=== PATIENT | male | born 1930 | race Caucasian/White ===

== ENCOUNTER 2018-04-10 10:52 | Inpatient (IN) | payer OTHER ==
[~2018-04-10] VITALS: Ht 170.2 cm; Wt 104.5 kg
--- NOTE | ~2018-04-10 | HC ---
[facility] [place] [place] [address] CONSULTATION Name: EDMUNDO FITZGERALD Room #: 363-P ADM IN M.R.#: [id number] Admission: 04/10/18 Attend Phys: Andrew Odom MD Discharge: Date of : 31 Report #: [id number] THIS REPORT FOR: //name// CC: Leah Odom MD DATE OF SERVICE: 04/11/2018 REFERRING PHYSICIAN: Dr. Odom and also Dr. Leah Faustin. REASON FOR CONSULTATION: History of Waldenstrom's macroglobulinemia. HISTORY OF PRESENT ILLNESS: The patient is an 87-year-old gentleman who I first met on 03/25/2018, he has been referred for possible monoclonal gammopathy of unknown significance. He was found to have an elevated total protein and then a serum protein electrophoresis this past year. He had 3 abnormal protein bands measuring 0.6, 0.7 and 0.3 g/dL. The immunofixation studies show an IgM kappa and IgM lambda and possible poorly-defined IgG kappa paraprotein. The patient had a recent additional test that had included a repeat urine LOLIS that showed free monoclonal kappa, a urine protein electrophoresis that showed no significant protein elevation and SPEP protein of 1.88 total. LABORATORY DATA: A beta 2 microglobulin elevated at 3.2. A serum kappa light chain of 17.47 with upper range of 1.94, free lambda light chain of 4.73 with upper range of 2.63 and a ratio that was slightly above normal at 3.69. The IgM was slightly elevated at 1292 with upper normal of 328. The IgG was 2053, high normal is 1488 and IgA that was normal. The CBC showed a fairly normal hemoglobin, white count and platelet count. A recent skeletal survey showed diffuse osteopenia without discrete lytic changes. Recent bone marrow showed B cell lymphoma, 80% bone marrow cellularity involving hypercellular 80-90% with decreased trilineage hematopoiesis. These changes would be most consistent I think with Waldenstrom's macroglobulinemia. The patient is now admitted for weakness, was found to have sodium that was low and is being evaluated for hyponatremia. The patient had been experiencing some weakness for the past several weeks, though he denied any fevers, chills, abdominal pain, diarrhea, constipation, dysuria. He had had some mild shortness of air, may be some chronic mild leg swelling. PAST MEDICAL HISTORY: Notable for atrial fibrillation; coronary artery disease; history of heart failure, under control; diabetes mellitus; diabetic neuropathy; macular degeneration; essential hypertension; supraventricular tachycardia and bladder difficulties. 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 He lives in a longterm center and enjoys playing bridge. He likes to help run the bridge groups. He is not regular, but enjoys companionship. His from cancer about 7 years ago. He has a very attentive family. LAB TESTS MEDICATIONS: Here in the hospital include sodium on admit of 116 and then 119, now 124 last night or early this morning, being followed; BUN of 13, creatinine of 0.8, glucose of 149. Total bilirubin 1.8, alkaline phosphatase 211, ALT 84, AST 46, albumin 3.0. White count of 5.7, hemoglobin 11.7, platelets of 198. Differential has a slight increase in neutrophils and monocytes. UA does have some urobilinogen, some trace blood and trace protein. Imaging study done here includes a CT chest, abdomen and pelvis that is remarkable for not showing any lymphadenopathy, though it did show some question of interstitial edema and possible heart failure with cardiomegaly, coronary artery disease. Mild abdominal pelvic ascites, no evidence for abdominal or significant pelvic adenopathy. There is a small ventral pelvic hernia that is eccentric to the right, nonobstructing. CURRENT MEDICATIONS: Here in the hospital currently include nystatin 1 gram b.i.d. topically, tamsulosin 0.4 daily, fluticasone 2 sprays to nares daily, MiraLax 17 grams daily, Xanax 1 mg daily at bedtime, apixaban 5 mg b.i.d., carvedilol 25 mg b.i.d., currently IV fluids. PHYSICAL EXAMINATION GENERAL: The patient appears his stated age. VITAL SIGNS: Height is 5 feet 7 inches, 170 cm. Weight is possibly 263 pounds, though yesterday's report has 224, we will need to clarify, so his weight is either 101.6 kilos or 119 kilos. MOOD: The patient is alert and pleasant. He does not see much different than his usual self when I had seen him the one time before. HEENT: Face is symmetric. He is moving extremities. Speech and thought pattern appear to be normal. Oropharynx is clear. LUNGS: Mostly clear anteriorly without any rhonchi or wheezes. HEART: Appears regular rate. ABDOMEN: Obese. No organomegaly. EXTREMITIES: Without clubbing, cyanosis. There is some trace edema. ASSESSMENT AND PLAN: 1. Recently-diagnosed Waldenstrom's macroglobulinemia with an IgM of around 1200. I do not believe the patient is having symptoms from his recently diagnosed macroglobulinemia. Usually indications for treatment are unexplained fevers, chills, weight loss or cytopenias. I think most likely his other etiologies causes weakness and hyponatremia. We will follow along. 2. Hyponatremia, deferring to others, is improving with current measures. [facility] [address] [place] [address] CONSULTATION Name: EDMUNDO FITZGERALD Room #: 363-P [facility] IN ..#: [id number] Admission: 04/10/18 Attend Phys: Andrew Odom MD Discharge: Date of : 31 Report #: [id number] 3. History of coronary heart issues including AFib, coronary artery disease, heart failure, and hypertension. Continue the apixaban and carvedilol. 4. Diabetes mellitus. Continues Accu-Cheks and meds and interventions. 5. Weakness. We will most likely have Physical Therapy see the patient. We will follow with you. <ELECTRONICALLY SIGNED> By: Vijay Lyman MD 04/16/18 0825 0720 1317 Vijay Lyman MD /nt
--- NOTE | ~2018-04-10 | PATH ---
[facility] [address] [place] [address] PATHOLOGY RPT PROCEDURE Name: EDMUNDO FITZGERALD Room #: 363-P ADM IN .R.#: [id number] Admission: 04/10/18 Date of : 31 Discharge: Report #: [id number] Path Case #: [id number] Note [facility] Accession Number: [id number] TESTS RESULT FLAG UNITS REF RANGE LAB Clinician Provided Cytology Information No. of containers..01 Other (Miscellaneous) Source: PLEURAL FLUID DIAGNOSIS: 02 PLEURAL FLUID NEGATIVE FOR MALIGNANT CELLS. MESOTHELIAL CELLS ARE PRESENT. THIS INTERPRETATION INCLUDES EVALUATION OF A CELL BLOCK. MARKED ACUTE AND CHRONIC INFLAMMATORY INFILTRATE. Signed out by: Fany Amos MD, Pathologist NPI- [id number] Performed by: Elan Anderson, [employer] ([facility]) Gross description: 01 15 ML, YELLOW, CLEAR /LCS FLAG LEGEND: L-Low Normal,H-High Normal,LL-Alert Low,HH-Alert High <-Panic Low,>-Panic High,A-Abnormal,AA-Critical Abnormal Performed at: [address] [place] [address] Lawrence Burk MD, [address] [address] Fany Amos MD, Performed at: [address], [place], [place] [id number] MD Lawrence Burk MD Phone: [phone]
--- NOTE | ~2018-04-10 | HC ---
[facility] [place] [address] CONSULTATION Name: EDMUNOD FITZGERALD Dion Room #: 363-P [facility] IN M.R.#: [id number] Admission: 04/10/18 Attend Phys: Andrew Odom MD Discharge: Date of : 31 Report #: [id number] THIS REPORT FOR: //name// CC: Leah Odom DATE OF SERVICE: 04/11/2018 REASON FOR PRESENTATION: Weakness. HISTORY OF PRESENT ILLNESS: An 87-year-old who was recently diagnosed to have non-Hodgkin's per his daughter. Bone marrow biopsy was done. I do not have those records available. He is not known to have any issues with his kidneys or sodium in the past. When he presented to the emergency room, he was found to have a sodium of 116 mandating a nephrology consultation. He denies fever or chills. He tells me that he drinks excessive amount of water a day. He was not aware of his heart issues; however, further investigations after being admitted revealed that he has a significantly depressed and reduced ejection fraction. He does have lower extremity edema and all of his presentation is consistent with hypervolemic hyponatremia. PAST MEDICAL HISTORY: 1. Heart failure. 2. Hypertension. 3. Perforated colon post colon resections, colostomy and colostomy reversal. 4. Atrial fibrillation post ablation. 5. Diabetes mellitus. MEDICATIONS: 1. Spironolactone. 2. Metformin. 3. Eliquis. 4. Carvedilol. 5. Lisinopril. 6. Simvastatin. SOCIAL HISTORY: No drug or alcohol abuse. REVIEW OF SYSTEMS: GENERAL: No fever or chills. CARDIOVASCULAR: As per the history of present illness. PULMONARY: No cough or hemoptysis. GASTROINTESTINAL: No nausea or vomiting. GENITOURINARY: No frequency, no urgency. PHYSICAL EXAMINATION: [facility] [address] [place] [address] CONSULTATION Name: AMILCAREDMUNDO Dion Room #: 363-P [facility] IN [facility]#: [id number] Admission: 04/10/18 Attend Phys: Andrew Odom MD Discharge: Date of : 31 Report #: [id number] GENERAL: Alert, oriented, in no apparent distress. VITAL SIGNS: Temperature 37.1, blood pressure 133/73. HEAD AND NECK: No jugular venous distention, no bruit, no thyromegaly. CHEST: Decreased air entry bilaterally with crackles. CARDIOVASCULAR: Irregular, with no rub detected. ABDOMEN: Soft, nontender with no hepatosplenomegaly. LOWER EXTREMITIES: +3 edema. LABORATORY VALUES: Reviewed. Sodium is up to 124. Echo, results were reviewed. He has normal kidney function. TSH is within normal. ASSESSMENT, IMPRESSION AND PLAN: 1. Hypervolemic hyponatremia. 2. Systolic heart failure. 3. Pulmonary edema. 4. Discontinue normal saline. 5. Appropriate treatment of his heart failure therapy with the following beta saima. 6. MORELIA inhibitor. 7. Salt and fluid restrictions. 8. Daily body weight. 9. Initiate on a stable diuretic regimen. By: 1434 0047 Dulce Luis MD /nt
--- NOTE | ~2018-04-10 | EKG ---
[place] [address] [address] [facility] [address] [place] [address] ELECTROCARDIOGRAM REPORT Name: EDMUNDO FITZGERALD Room #: 363-P ADM IN M.R.#: [id number] Admission: 04/10/18 Attend Phys: Andrew Odom MD Discharge: Date of : 31 Report #: [id number] THIS REPORT FOR: //name// [facility] ED Test Date: 2018-04-10 Test Time: 11:26:21 Pat Name: EDMUNDO FITZGERALD Department: Room: Gender: M Assembly Inspector Helper: : 1930 Requested By: Carlos Orlando Order Number: [id number] MD: Shreyas Colin Measurements Intervals Cecil Rate: 74 P: ME: QRS: -52 QRSD: 123 T: 19 QT: 395 QTc: 439 Interpretive Statements Atrial fibrillation Left bundle branch block Compared to ECG 06/15/2008 08:39:42 Left bundle-branch block now present Sinus rhythm no longer present Electronically Signed On 04-10-2018 16:55:20 CDT by Shreyas Colin [email or web address] <ELECTRONICALLY SIGNED> By: Shreyas Colin MD, [facility] 04/10/18 6547 1126 1126 Shreyas Colin MD, [facility] /EPI
--- NOTE | ~2018-04-10 | HC ---
[facility] [place] [address] CONSULTATION Name: EDMUNDO FIZTGERALD Dion Room #: 363-P [facility] IN M.R.#: [id number] Admission: 04/10/18 Attend Phys: Andrew Odom MD Discharge: Date of : 31 Report #: [id number] THIS REPORT FOR: //name// CC: Leah Odom DATE OF SERVICE: 04/14/2018 HISTORY OF PRESENT ILLNESS: The patient is an 87-year-old white male with history of non-Hodgkin's lymphoma, diabetes mellitus type 2, hypertension, atrial fibrillation and was admitted with increased weakness. Noted to have difficulty walking. He was noted to have hyponatremia with question of SIADH. He also has been diagnosed with a significant decreased cardiac ejection fraction of 20%. He is noted to have heart failure and his fluid status is being monitored. Hematology is involved with his noted Waldenstrom's macroglobulinemia. We are seeing him in rehabilitation medicine consultation. He does have medical complexity with generalized debilitation. PAST MEDICAL HISTORY: Includes hypertension, perforated colon with colon resection in 2002, irregular heartbeat, non-insulin dependent diabetes mellitus. He has got an old left knee injury from football and he uses a knee orthosis. HABITS: No history of tobacco or alcohol abuse. ALLERGIES: INCLUDE PENICILLIN. SOCIAL HISTORY: Lives in a senior apartment alone Mike Adorno[address]. Used a walker to get around with his left knee brace. Daughters apparently considering getting him a powered scooter. REVIEW OF SYSTEMS: Complains of generalized fatigue. No current complaints of chest pain, shortness of breath, abdominal discomfort. He has the chronic left knee problems for which he wears the brace. PHYSICAL EXAMINATION: GENERAL: A pleasant 87-year-old white male in no obvious distress. He appears alert and pleasant. HEENT: Appeared to be benign. VITAL SIGNS: Last recorded temperature 97.3, pulse 88, respirations 21, and blood pressure 107/64. NEUROLOGIC: The patient is alert. He is pleasant. He follows basic commands without difficulty. Facies are symmetric. Functional range of motion of the upper extremity strength is grade 4-/5. DTRs are trace to 1. Lower extremities, no focal calf swelling, functional range of motion with strength grade 4-/5. DTRs are trace to 1. He is min assist with sit to stand. Gait 50 feet min assist with a front-wheeled walker utilizing the left AFO. [facility] [address] [place] [address] CONSULTATION Name: EDMUNDO FITZGERALD Room #: 363-P [facility] IN [facility].#: [id number] Admission: 04/10/18 Attend Phys: Andrew Odom MD Discharge: Date of : 31 Report #: [id number] ASSESSMENT: An 87-year-old white male with the following problem list: 1. Medical complexity with generalized debilitation. 2. Acute on chronic systolic heart failure. He underwent thoracentesis, removing 500 mL of fluid on 04/12/2018 3. Waldenstrom's macroglobulinemia. 4. Hyponatremia. 5. Decreased ejection fraction 20%. 6. History of atrial fibrillation. 7. Coronary artery disease. 8. Diabetes mellitus. 9. Hypertension. 10. Macular degeneration. PLAN: Rehab therapy options will be considered. He does have multiple medical issues and the multiple nursing consultant physicians are continuing to follow with him. Insurance issues will be checked regarding a short acute in-hospital inpatient rehabilitation stay. He could continue with his therapy program with the goal of becoming modified independence so that he can return back to his home setting. The multiple nursing consultant physicians would continue to be able to follow along with him while he was on the acute rehab fox. Insurance issues will be checked and we will be glad to follow along with you. By: 1223 1554 Jay Jay Gong MD /nt
--- NOTE | ~2018-04-10 | 2DMMODE ---
[facility] [address] [place] [address] 2 D/M-MODE ECHOCARDIOGRAM Name: EDMUNDO FITZGERALD Room #: 363-P [facility] IN ..#: [id number] Admission: 04/10/18 Attend Phys: Andrew Odom, Discharge: Date of : 31 Date of Service: 04/11/18 1003 Report #: [id number] THIS REPORT FOR: //name// APPROVED REPORT Study performed: 04/11/2018 08:35:58 EXAM: Comprehensive 2D, Doppler, and color-flow Echocardiogram Patient Location: Bedside Room #: 363 Status: routine BSA: 2.27 HR: 80 bpm BP: 150/90 mmHg Rhythm: Atrial Fibrillation Other Information Study Quality: Good Indications Pleural effusions, short of breath. Hx: Afib, HTN, DM 2D Dimensions RVDd: 45.53 mm LVEF(%): 19.92 (>50%) IVSd: 12.02 (7-11mm) LVOT Diam: 23.32 (18-24mm) LVDd: 50.74 mm PWd: 12.10 (7-11mm) Ascending Ao: 33.93 (22-36mm) LVDs: 46.13 (25-40mm) Aortic Root: 37.42 mm Diaz's LVEF: 19.92 % Volumes Left Atrial Volume (Systole) Single Plane 4CH: 63.50 mL Single Plane 2CH: 118.30 mL LA ESV Index: 41.00 mL/m2 Aortic Valve AoV Peak Kevin.: 1.85 m/s AO Peak Gr.: 13.79 mmHg LVOT Max P.17 mmHg LVOT Max V: 0.74 m/s RICKY Vmax: 1.70 cm2 Mitral Valve MV Decel. Time: 159.49 ms MV E Max Kevin.: 1.16 m/s [facility] [place] [address] 2 D/M-MODE ECHOCARDIOGRAM Name: EDMUNDO FITZGERALD Room #: 363-P [facility].#: [id number] Admission: 04/10/18 Attend Phys: Andrew Odom, Discharge: Date of : 31 Date of Service: 04/11/18 1003 Report #: [id number] Pulmonary Valve PV Peak Kevin.: 0.61 m/s PV Peak Gr.: 1.52 mmHg Tricuspid Valve TR Peak Kevin.: 3.13 m/s RAP Estimate: 10.00 mmHg TR Peak Gr.: 39.32 mmHg PA Pressure: 49.00 mmHg Left Ventricle The left ventricle is normal size. Mild concentric left ventricular hypertrophy. Left ventricular systolic function is severely decreased. LVEF is 30%. This study is not technically sufficient to allow evaluation of the LV diastolic function due to atrial fibrillation. Right Ventricle Right ventricle is moderately dilated. Right ventricle is mildly hypokinetic. Atria Left atrium is moderately dilated. Right atrium is severely dilated. Aortic Valve Aortic valve is moderately calcified. Trace aortic regurgitation. Mild aortic stenosis. Calculated valve area by continuity equation is 1.7cm2. Mitral Valve The mitral valve is normal in structure. Mild mitral annular calcification. Mild mitral regurgitation. Tricuspid Valve The tricuspid valve is normal in structure. Mild to moderate tricuspid regurgitation. Estimated PAP is 50mmHg. Pulmonic Valve The pulmonary valve is normal in structure. Trace pulmonic regurgitation. Great Vessels The aortic root is normal in size. The ascending aorta is normal in size. IVC is dilated and collapses <50% with inspiration. [facility] [address] [place] [address] 2 D/M-MODE ECHOCARDIOGRAM Name: AMILCARLASTEDMUNDO Dion Room #: 363-P [facility] IN [facility].#: [id number] Admission: 04/10/18 Attend Phys: Andrew Odom, Discharge: Date of : 31 Date of Service: 04/11/18 1003 Report #: [id number] Pericardium There is no pericardial effusion. Right pleural effusion noted. <Conclusion> The left ventricle is normal size. Left ventricular systolic function is severely decreased. LVEF is 30%. Right ventricle is moderately dilated. Right ventricle is mildly hypokinetic. Aortic valve is moderately calcified. Trace aortic regurgitation. The mitral valve is normal in structure. Mild mitral annular calcification. The tricuspid valve is normal in structure. Mild to moderate tricuspid regurgitation. Estimated PAP is 50mmHg. The pulmonary valve is normal in structure. Trace pulmonic regurgitation. There is no pericardial effusion. <ELECTRONICALLY SIGNED> By: Kashmir Meredith MD 04/11/18 1003 1003 1003 Kashmir Meredith MD /INF
[2018-04-10 11:13] VITALS: BP 126/67
[2018-04-10 11:51] LABS: HEMATOCRIT 35.2 % (42.0-52.0); HEMOGLOBIN 12.3 gm/dL (14.0-18.0); MCV 91.4 fL (80.0-100.0); PLATELET COUNT 218 thou/uL (150-400); RBC 3.85 mil/uL (4.50-6.00); RDW 14.9 % (10.5-14.5)
[2018-04-10 12:00] LABS: ANION GAP 7 mmol/L (7-16); BUN 14 mg/dL (7-18); CALCIUM 8.5 mg/dL (8.5-10.1); CHLORIDE 87 mmol/L (98-107); CO2 22 mmol/L (21-32); CREATININE 0.9 mg/dL (0.7-1.3); GLUCOSE 177 mg/dL (74-106); POTASSIUM 4.6 mmol/L (3.5-5.1)
[2018-04-10 12:04] LABS: INR 1.4; PROTIME 14.1 Seconds (9.3-11.4)
[2018-04-10 12:05] LABS: SODIUM 116 mmol/L (136-145)
[2018-04-10 12:17] LABS: ALBUMIN 3.1 g/dL (3.4-5.0); MAGNESIUM 1.6 mg/dL (1.8-2.4); PHOSPHORUS 2.7 mg/dL (2.5-4.9); SGOT 46 U/L (15-37); SGPT 84 U/L (30-65); TOTAL BILIRUBIN 1.8 mg/dL (<0.1-1.0); TOTAL PROTEIN 8.1 g/dL (6.4-8.2); TROPONIN-I <0.06 ng/mL (<0.06); URIC ACID* 5.1 mg/dL (2.6-7.2)
[2018-04-10 12:34] LABS: ABSOLUTE NEUTROPHILS 6.5 thou/uL (1.4-8.2); METAMYELOCYTES 1 %; PLATELET ESTIMATE NORMAL
[2018-04-10 12:39] LABS: URINE BILIRUBIN NEGATIVE (Negative); URINE BLOOD TRACE (Negative); URINE CLARITY CLEAR; URINE COLOR YELLOW; URINE GLUCOSE-RANDOM* NEGATIVE (Negative); URINE KETONES NEGATIVE (Negative); URINE LEUKOCYTES-REFLEX NEGATIVE (Negative); URINE NITRITE-REFLEX NEGATIVE (Negative); URINE PROTEIN (DIPSTICK) TRACE (Negative); URINE SPECIFIC GRAVITY 1.015 (1.005-1.035)
[2018-04-10 13:02] LABS: CHOLESTEROL 73 mg/dL (<200); HDL CHOLESTEROL 23 mg/dL (>40); LDL CHOLESTEROL 39 mg/dL (<100); TC:HDL 3.2 Ratio (Not establshd); TRIGLYCERIDE 56 mg/dL (<150); VLDL 11 mg/dL (<40)
[2018-04-10] MEDS ORDERED: METFORMIN HCL500 MG PO ×2 (14:27→14:34)
[2018-04-10] MEDS ORDERED: SPIRONOLACTONE25 M1 PO (14:33)
[2018-04-10] MEDS ORDERED: ELIQUIS5 MG PO (14:34)
[2018-04-10] MEDS ORDERED: COREG25 MG PO (14:35)
[2018-04-10] MEDS ORDERED: LISINOPRIL20 MG PO (14:36)
[2018-04-10] MEDS ORDERED: MACULAR VITAMI1 EACH PO (14:36)
[2018-04-10] MEDS ORDERED: MIRALAX17 GM PO (14:37)
[2018-04-10] MEDS ORDERED: FLOMAX0.4 MG PO (14:38)
[2018-04-10] MEDS ORDERED: FLONASE 0.05%50 MCG NASAL (14:38)
[2018-04-10] MEDS ORDERED: CALICUM 500+D1 EACH PO (14:39)
[2018-04-10] MEDS ORDERED: XANAX1 MG PO (14:40)
[2018-04-10] MEDS ORDERED: ZOCOR20 MG PO (14:40)
[2018-04-10 15:06] VITALS: BP 144/87
[2018-04-10 15:07] VITALS: BP 151/89
[2018-04-10 16:42] LABS: CALCIUM 8.4 mg/dL (8.5-10.1); CREATININE 0.8 mg/dL (0.7-1.3); POTASSIUM 4.4 mmol/L (3.5-5.1); TOTAL PROTEIN 8.1 g/dL (6.4-8.2)
[2018-04-10 17:07] VITALS: BP 148/88
[2018-04-10 17:14] LABS: TSH 1.842 uIU/mL (0.358-3.740)
[2018-04-10 19:31] VITALS: BP 115/75
[2018-04-11] VITALS (7 sets, daily range): BP systolic 102–150; BP diastolic 58–93
[2018-04-11 04:45] LABS: HEMATOCRIT 33.8 % (42.0-52.0); HEMOGLOBIN 11.7 gm/dL (14.0-18.0); MCH 32.1 pg (26.0-34.0); MCHC 34.8 g/dL (28.0-37.0); MCV 92.5 fL (80.0-100.0); RBC 3.65 mil/uL (4.50-6.00); RDW 15.2 % (10.5-14.5); WBC 5.7 thou/uL (4.0-11.0)
[2018-04-11 05:05] LABS: CALCIUM 8.8 mg/dL (8.5-10.1); CREATININE 0.8 mg/dL (0.7-1.3); MAGNESIUM 1.9 mg/dL (1.8-2.4); POTASSIUM 4.3 mmol/L (3.5-5.1)
[2018-04-12 04:15] VITALS: BP 117/72
[2018-04-12 05:59] LABS: HEMATOCRIT 37.8 % (42.0-52.0); HEMOGLOBIN 12.8 gm/dL (14.0-18.0); MCH 31.6 pg (26.0-34.0); MCHC 33.8 g/dL (28.0-37.0); MCV 93.5 fL (80.0-100.0); RBC 4.04 mil/uL (4.50-6.00); RDW 15.8 % (10.5-14.5); WBC 6.5 thou/uL (4.0-11.0)
[2018-04-12 06:21] LABS: ALBUMIN 3.1 g/dL (3.4-5.0); CALCIUM 9.5 mg/dL (8.5-10.1); CREATININE 0.9 mg/dL (0.7-1.3); PHOSPHORUS 4.2 mg/dL (2.5-4.9); POTASSIUM 4.7 mmol/L (3.5-5.1)
[2018-04-12 07:29] VITALS: BP 140/77
[2018-04-12 11:01] VITALS: BP 112/69
[2018-04-12 12:57] LABS: BF NUCLEATED CELLS 678; BF RBC 833
[2018-04-12 13:05] LABS: TOTAL VOLUME 50 mL
[2018-04-12 13:06] LABS: CLARITY HAZY; COLOR YELLOW
[2018-04-12 14:30] LABS: BF NEUTROPHILS 15; SOURCE CHEST FLUID
[2018-04-12 15:22] VITALS: BP 119/69
[2018-04-12 19:36] VITALS: BP 115/66
[2018-04-13 00:07] LABS: BODY FLUID ALBUMIN 1.4 g/dL (())
[2018-04-13 05:52] LABS: HEMATOCRIT 37.8 % (42.0-52.0); MCHC 34.5 g/dL (28.0-37.0); MCV 92.9 fL (80.0-100.0); RBC 4.07 mil/uL (4.50-6.00); RDW 15.7 % (10.5-14.5); WBC 6.9 thou/uL (4.0-11.0)
[2018-04-13 06:00] VITALS: BP 125/73
[2018-04-13 06:09] LABS: ALBUMIN 3.1 g/dL (3.4-5.0); CALCIUM 9.5 mg/dL (8.5-10.1); CREATININE 0.9 mg/dL (0.7-1.3); PHOSPHORUS 4.7 mg/dL (2.5-4.9); POTASSIUM 4.3 mmol/L (3.5-5.1)
[2018-04-13 07:30] VITALS: BP 140/88
[2018-04-13 19:20] VITALS: BP 101/55
[2018-04-14 04:31] LABS: ALBUMIN 3.3 g/dL (3.4-5.0); CALCIUM 9.9 mg/dL (8.5-10.1); CREATININE 0.9 mg/dL (0.7-1.3); PHOSPHORUS 3.8 mg/dL (2.5-4.9); POTASSIUM 3.7 mmol/L (3.5-5.1)
[2018-04-14 04:41] LABS: HEMOGLOBIN 13.9 gm/dL (14.0-18.0); MCH 32.2 pg (26.0-34.0); MCHC 34.6 g/dL (28.0-37.0); MCV 93.1 fL (80.0-100.0); RBC 4.3 mil/uL (4.50-6.00); RDW 15.9 % (10.5-14.5); WBC 7.2 thou/uL (4.0-11.0)
[2018-04-14 04:56] VITALS: BP 127/84
[2018-04-14 07:58] VITALS: BP 124/71
[2018-04-14 09:00] LABS: SOURCE CHEST
[2018-04-14 11:44] VITALS: BP 107/64
[2018-04-14 17:39] VITALS: BP 110/72
[2018-04-14 19:15] VITALS: BP 97/53
[2018-04-15 04:20] VITALS: BP 109/70
[2018-04-15 05:55] LABS: ALBUMIN 3.3 g/dL (3.4-5.0); CALCIUM 9.9 mg/dL (8.5-10.1); CREATININE 1.2 mg/dL (0.7-1.3); PHOSPHORUS 4.3 mg/dL (2.5-4.9); POTASSIUM 4.2 mmol/L (3.5-5.1)
[2018-04-15 08:14] VITALS: BP 114/71
[2018-04-15 11:46] VITALS: BP 98/64
[2018-04-15 15:15] VITALS: BP 90/62
[2018-04-15 19:35] VITALS: BP 85/51
[2018-04-15 23:50] VITALS: BP 98/64
[2018-04-16 03:35] VITALS: BP 104/68
[2018-04-16 07:50] VITALS: BP 129/75
[2018-04-16 07:51] VITALS: BP 129/75
[2018-04-16 09:21] VITALS: BP 129/75
[2018-04-16 10:19] LABS: CALCIUM 10.1 mg/dL (8.5-10.1); CREATININE 1.6 mg/dL (0.7-1.3); POTASSIUM 4.3 mmol/L (3.5-5.1)
[2018-04-16] MEDS ORDERED: DEMADEX20 MG PO (12:52)
[2018-04-16] MEDS ORDERED: SPIRONOLACTONE25 M1 PO (12:52)
[2018-04-17 15:16] LABS: BODY FLUID GLUCOSE 153
[2018-04-17 15:18] LABS: BODY FLUID AMYLASE 16
[2018-04-17 15:19] LABS: BODY FLUID LDH 111
== END 2018-04-16 16:20 | DRG 640 ==
LOC: ER 10:52 → 3W 12:36 → EROBS 12:36 → 3W 15:09
PROVIDERS: Hospitalist; Internal Medicine; Physician Assistant
PROC: 0W993ZZ Drainage of Right Pleural Cavity, Percutaneous Approach (ICD-10-PCS; principal; 2018-04-12)
PROC: BB4BZZZ Ultrasonography of Pleura (ICD-10-PCS; principal; 2018-04-12)
DX: E87.1 Hypo-osmolality and hyponatremia (principal); I50.23 Acute on chronic systolic (congestive) heart failure; E44.1 Mild protein-calorie malnutrition; J90 Pleural effusion, not elsewhere classified; C85.90 Non-Hodgkin lymphoma, unspecified, unspecified site; I11.0 Hypertensive heart disease with heart failure; E87.70 Fluid overload, unspecified; E78.5 Hyperlipidemia, unspecified; R53.81 Other malaise; D64.9 Anemia, unspecified; E86.1 Hypovolemia; I25.10 Atherosclerotic heart disease of native coronary artery without angina pectoris; E11.9 Type 2 diabetes mellitus without complications; H35.30 Unspecified macular degeneration; F32.9 Major depressive disorder, single episode, unspecified; C88.0 Waldenstrom macroglobulinemia; N40.0 Benign prostatic hyperplasia without lower urinary tract symptoms; E83.42 Hypomagnesemia; I48.91 Unspecified atrial fibrillation; Z88.0 Allergy status to penicillin; Z79.899 Other long term (current) drug therapy; Z79.01 Long term (current) use of anticoagulants; Z68.36 Body mass index [BMI] 36.0-36.9, adult; Z90.49 Acquired absence of other specified parts of digestive tract; Z93.3 Colostomy status
CPT/HCPCS: 10879